=== PATIENT | male | born 1980 | race Asian ===

== ENCOUNTER 2017-09-15 10:34 | Emergency (ER) | payer SELFPAY ==
[2017-09-15] MEDS: diazePAM 5 MG TABLET PO (11:16)
[2017-09-15] MEDS: KETOROLAC 60 MG/2 ML INJ. IM (11:16)
== END 2017-09-15 11:39 | disposition home or self-care (01) ==
LOC: ER 10:34
DX: R07.89 Other chest pain (principal)
CPT/HCPCS: 71101; 93005; 96372; 99284-25; J1885